=== PATIENT | female | born 1955 | race Caucasian/White ===

== ENCOUNTER 2016-07-02 13:00 | Inpatient (IN) | payer OTHER ==
[2016-07-02] MEDS: IPRATROPIUM/ALBUTEROL SULFATE 3 ML AMPUL.NEB NEB ONE ×2 (13:00→16:53)
[2016-07-02 14:39] LABS: BASOPHILS % 0.2 (0.0-1.5); EOSINOPHILS % 0.4 % (0.0-6.8); MEAN CORPUSCULAR HEMOGLOBIN 30.8 pg (28.0-34.0); MONOCYTES # 0.6 # k/uL (0.0-0.9); MONOCYTES % 6.3 % (0.0-11.0); NEUTROPHILS # 6.3 # k/uL (1.4-7.7)
[2016-07-02 15:05] LABS: eGFR (African) > 60; eGFR (Non-African) > 60
[2016-07-02] MEDS ORDERED: methylPREDNISolone SOD SUCC 125 MG/2 ML VIAL IVP ONE (15:08)
[2016-07-02] MEDS ORDERED: ALBUTEROL SULFATE 2.5 MG/0.5 ML AMPUL.NEB NEB ONE (15:08)
[2016-07-02] MEDS ORDERED: POTASSIUM CHLORIDE 20 MEQ TABLET.ER PO ONE (15:13)
[2016-07-02] MEDS ORDERED: POTASSIUM CHLORIDE 40 MEQ/20ML VIAL IV ONE (15:14)
[2016-07-02] MEDS ORDERED: cefTRIAXone SODIUM 1 GM in 0.9 % SODIUM CHLORIDE 50 ML IV ONE (16:07)
--- NOTE | 2016-07-02 16:32 | Diagnostic Imaging Report ---
[facility] [address] [facility].[address] 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 Clinical history: Short of breath Findings: The heart size is mildly enlarged. There is ectasia and tortuosity of the thoracic aorta. No pleural effusion, pneumothorax or alveolar consolidation. There is mild pulmonary venous congestion. Impression: Mild cardiomegaly with pulmonary venous congestion. 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
--- NOTE | 2016-07-02 16:38 | History and Physical Report ---
History of Present Illnes - History of Present Illness Reason for Visit: SOB History of Present Illness: Patient has had a one week history of increasing SOB and TORRES. Was seen Monday by Dr Blas and started on a Zpak. She continued to have some difficulties and again was seen on Monday and Monday. At that time she she prescribed some steroid medication but did not get them filled. Has been using her Albuterol MDI q 6 hours. Presented to the ED with increasing SOB. Was felt to be having an acute exacerbation of COPD, given HFN of Duoneb and IV solumedrol with some improvement. Needed to be continued on oxygen therapy and was admitted for further treatment. - Past Medical History Cardiac: denies: HTN Pulmonary: COPD. denies: Asthma, Bronchitis, Pulmonary embolus - Past Surgical History Past Surgical History: Cholecystectomy, Hysterectomy, Other (eye surgery, arthroscopin knee surgery, abd wall hernia repair. ) - Past Family History Mother Family History: CAD, (71yo) Brother 1 Family History: DM Father Family History: Cancer (lymphoma), CAD, (68yo) Brother 2 Family History: Cancer (unknown source), Other (Renal failure) Sister 1 Family History: DM Sister 2 Family History: CAD - Past Social History Smoke: 1 pack per day Alcohol: None Drugs: None Lives: With Family Domestic Violence: Negative - Health Maintenance Health Maintenance: Influenza Vaccine. denies: Pneumococcal Vaccine Influenza Vaccine: Current for this Influenza Season Pneumonia Vaccine: No Resuscitation Status: Full code - Unable to Obtain History Unable to Obtain: No Review of Systems - Review of Systems Constitutional: negative: Fever, Chills Eyes: negative: pain, vision change, conjunctivae inflammation ENT: negative: Ear Pain, Ear Discharge, Nose Pain, Nose Discharge, Nose Congestion, Mouth Pain, Mouth Swelling, Throat Pain, Throat Swelling Respiratory: Cough, Shortness of Breath, SOB with Excertion, Sputum (clear to yellow). negative: Hemoptysis, Pleuritic Pain, Wheezing Cardiovascular: Edema. negative: Chest Pain, Palpitations, Orthopnea, Paroxysmal Noc. Dyspnea, Light Headedness Gastrointestinal: negative: Nausea, Vomiting, Abdominal Pain, Diarrhea, Constipation, Hematochezia Genitourinary: negative: Dysuria, Frequency, Incontinence, Hematuria Musculoskeletal: negative: Shoulder Pain Skin: negative: Rash Neurological: negative: Weakness, Numbness, Incoordination - Medications/Allergies Allergies/Adverse Reactions: Allergies Allergy/AdvReac Type Severity Reaction Status Date / Time Tetanus & Diphtheria Allergy Intermediate edema Verified 06/16/14 13:03 Tox,Adult Home Medications: Home Medications Albuterol Sulfate [ProAir RespiClick] 07/02/16 Current Inpatient Medications: Current Inpatient Medications Albuterol/Ipratropium (Duoneb) 3 ml NEB Q4 [facility] Enoxaparin Sodium (Lovenox) 30 mg SQ QD [facility] Stop: 07/15/16 17:01 Hydrochlorothiazide (Hydrodiuril) 25 mg PO DAILY [facility] Ceftriaxone Sodium 1 gm/ (Sodium Chloride) 50 mls @ 100 mls/hr IV NOW ONE Stop: 07/02/16 16:36 Ceftriaxone Sodium 1 gm/ (Sodium Chloride) 50 mls @ 100 mls/hr IV QD [facility] Insulin Human Regular (Humulin R) 0 - 12 unit SQ CHEMX3 [facility] PRN Reason: Protocol Methylprednisolone Sodium Succinate (Solu-Medrol) 80 mg IVP Q12 [facility] Miscellaneous (Chem Sticks) 1 each MC CHEMQID [facility] Naproxen (Naprosyn) 375 mg PO BID [facility] Potassium Chloride (Klor-Con M20) 20 meq PO DAILY [facility] Sodium Chloride (Normal Saline Flush) 3 ml IV BID [facility] Exam - Exam General: Alert, Oriented to Person, Oriented to Place, Oriented to Time, Cooperative HEENT: Atraumatic, PERRLA, Mouth Mucous membr. moist/[place] Neck: Normal Range of Motion. No: Lymphadenopathy Carotids: WNL Thyroid: WNL Lungs: Speaks full Sentences, Respiratory Distress (mild), Wheezes (expiratory) , Rales (few scattered) Cardiovascular: Regular rate, Normal S1, Normal S2, No murmurs. No: Gallops, Rubs Abdomen: Normal bowel sounds, Soft, No tenderness, No hepatospenomegaly, No masses Integumentary: Normal, [place], Warm, Dry Extremities: No clubbing, No cyanosis, No edema Neurological: Normal gait, Normal speech, Strength Equal Bilat, Normal tone Psych/Mental Status: Mental status NL, Mood NL, Appropriate Affect, Intact Judgment - Laboratory Results Laboratory Results: Laboratory Results 07/02/16 07/02/16 15:30 15:35 Influenza Type A Ag Negative Influenza Type B Ag Negative Group A Strep Screen Negative Assessment/Plan - Assessment/Plan (1) COPD with acute exacerbation Status: Acute Current Visit: Yes (2) Hypokalemia Status: Acute Current Visit: Yes (3) Tobacco abuse Status: Acute Current Visit: Yes VTE Assessment - RISK FACTOR SCORE VTE RISK FACTOR SCORES: AGE OVER 60 YEARS, ANTICIPATED BED CONFINEMENT OR IMMOBILIZATION > 24 HOURS - RISK VTE MODERATE RISK: SCORE OF 2 (RISK PROXIMAL DVT 2-4%) PROPHYAXIS NEEDED
[2016-07-02] MEDS ORDERED: POTASSIUM CHLORIDE 20 MEQ TABLET.ER PO SCH (17:14)
[2016-07-02 17:40] VITALS: BMI 97.2
[2016-07-02] MEDS ORDERED: NICOTINE 14mg PATCH.TD24 TD SCH (18:00)
[2016-07-02] MEDS: INSULIN REGULAR, HUMAN 100 UNIT/ML 3ML VIAL SQ SCH (18:10)
[2016-07-02] MEDS: IPRATROPIUM/ALBUTEROL SULFATE 3 ML AMPUL.NEB NEB SCH ×2 (18:11→21:36)
[2016-07-02] MEDS: cefTRIAXone SODIUM 1 GM in 0.9 % SODIUM CHLORIDE 50 ML IV SCH (18:12)
[2016-07-02] MEDS: FUROSEMIDE 20 MG/2 ML VIAL IVP SCH ×2 (18:25→23:50)
[2016-07-02] MEDS: ENOXAPARIN SODIUM 30 MG/0.3 ML DISP.SYRIN SQ SCH (18:32)
[2016-07-02] MEDS ORDERED: SALINE FLUSH 10 ML DISP.SYRIN IVF ONE ×2 (18:37→21:23)
[2016-07-02] MEDS ORDERED: NICOTINE 21mg 1 EACH PATCH.TD24 TD ONE (19:17)
[2016-07-02] MEDS: POTASSIUM CHLORIDE 20 MEQ TABLET.ER PO SCH (19:52)
[2016-07-02] MEDS: LORazepam 0.5 MG TABLET PO PRN (19:53)
[2016-07-02] MEDS: NAPROXEN 250 MG TABLET PO SCH (19:55)
[2016-07-02] MEDS: NICOTINE 21mg 1 EACH PATCH.TD24 TD SCH (19:58)
[2016-07-02] MEDS: SALINE FLUSH 10 ML DISP.SYRIN IV SCH (21:40)
[2016-07-02] MEDS: methylPREDNISolone SOD SUCC 40 MG/ML VIAL IVP SCH (23:23)
--- NOTE | 2016-07-02 23:45 | ED Physician Documentation ---
Dyspnea - HISTORIAN Historian: patient - HPI Stated Complaint: short of breath Chief Complaint: Dyspnea Onset: days ago Initiating Event: upper respiratory illness Severity: severe Associated Symptoms: chills, fever, productive cough Further Comments: yes (60 year old female patient brought in by family due to increased SOB. Patient states she has been sick for the past 2 weeks, states she saw Dr Silva on Monday and completed a zpak and had tessalon perles. States she was seen in the clinic Monday, but did not have time to get her steroid prescription. Patient was prescribed nebulizer treatments but does not have a nebulizer machine at home. C/O worsening SOB and cough with fever and chills. RA Sat 87-88%) - ROS CONST: recent illness EYES/ENT: none GI/: none NEURO/PSYCH: denies: headache MS/SKIN/LYMPH: none - PAST HX Lung Disease: COPD Cardiac Disease: none PE Risk Factors: none Surgeries/Procedures: hysterectomy, other (right knee x 2 arthroscopies) Other History: diabetes Type 2 Allergies/Adverse Reactions: Allergies Allergy/AdvReac Type Severity Reaction Status Date / Time Tetanus & Diphtheria Allergy Intermediate edema Verified 06/16/14 13:03 Tox,Adult Home Medications: Ambulatory Orders Medication Instructions Recorded Hydrochlorothiazide 25 mg PO DAILY 09/10/12 [Hydrochlorothiazide] Benzonatate [Tessalon] 200 mg PO TID PRN #25 capsule 06/16/14 Meloxicam [Mobic] 2.5 mg PO DAILY 06/16/14 Albuterol Sulfate [ProAir 07/02/16 RespiClick] - SOCIAL HX Smoking History: cigarettes (1 ppd since age 11) Alcohol Use: none - FAMILY HX Family History: denies: none - VITAL SIGNS Vital Signs: Vital Signs Temp Pulse Resp BP Pulse Ox 98.8 F 92 H 20 149/72 95 07/02/16 17:43 07/02/16 17:43 07/02/16 17:19 07/02/16 17:43 07/02/16 18:30 - REVIEWED ASSESSMENTS Nursing Assessment Reviewed: Yes Vitals Reviewed: Yes Progress - Progress Progress: Flu shot fall 2015, no history of pneumovac Spoke with Dr Mcgrath, will admit to [facility] for exacerbation of COPD. K 2.5 - no ectopy, K replacement ordered, will continue telemetry ED Results Lab/Radiology - Lab Results Lab Results: Lab Results 07/02/16 07/02/16 07/02/16 15:02 14:40 13:42 WBC RBC Hgb Hct MCV MCH MCHC RDW Plt Count Neut % (Auto) Lymph % (Auto) [place] % (Auto) Eos % (Auto) Baso % (Auto) Neut # Lymph # [place] # Eos # Baso # Reactive Lymphs % Reactive Lymphs # D-Dimer 312 ng/mL ng/mL (6.0-682) Sodium 131 mmol/L L mmol/L (136-145) Potassium 2.5 mmol/L L* mmol/L (3.5-5.0) Chloride 91 mmol/L L mmol/L (98-110) Carbon Dioxide 39 mmol/L H mmol/L (20-32) BUN 16 mg/dL mg/dL (10-26) Creatinine 0.7 mg/dL mg/dL (0.4-1.5) Estimated Creat Clear 182 Est GFR ( Amer) > 60 (60 - ) Est GFR (Non-Af Amer) > 60 (60 - ) Glucose 182 mg/dL H mg/dL (70-99) Calcium 9.9 mg/dL mg/dL (8.5-10.5) Total Bilirubin 0.4 mg/dL mg/dL (0.2-1.2) AST 20 U/L U/L (0-41) ALT 18 U/L U/L (0-45) Alkaline Phosphatase 55 U/L U/L (46-116) NT-Pro-B Natriuret Pep 138.0 pg/mL H pg/mL (15.0-125.0) Total Protein 8.0 g/dL g/dL (6.0-8.5) Albumin 4.5 g/dL g/dL (3.0-5.5) 07/02/16 13:42 WBC 9.30 K/ul K/ul (4.00-12.00) RBC 5.01 M/ul M/ul (3.90-5.20) Hgb 15.4 g/dL g/dL (12.0-16.0) Hct 43.7 % % (34.5-46.5) MCV 87.2 fl fl (80.0-100.0) MCH 30.8 pg pg (28.0-34.0) MCHC 35.3 g/dL g/dL (30.0-36.0) RDW 12.8 % % (11.3-14.3) Plt Count 209 K/mm3 K/mm3 (130-400) Neut % (Auto) 68.3 % % (39.0-79.0) Lymph % (Auto) 22.1 % % (16.0-50.0) [place] % (Auto) 6.3 % % (0.0-11.0) Eos % (Auto) 0.4 % % (0.0-6.8) Baso % (Auto) 0.2 (0.0-1.5) Neut # 6.3 # k/uL # k/uL (1.4-7.7) Lymph # 2.0 # k/uL # k/uL (0.6-4.0) [place] # 0.6 # k/uL # k/uL (0.0-0.9) Eos # 0.0 # k/uL # k/uL (0.0-0.6) Baso # 0.0 # k/uL # k/uL (0.0-0.5) Reactive Lymphs % 2.7 % % (0.0-5.0) Reactive Lymphs # 0.2 # k/uL # k/uL (0.0-0.8) D-Dimer Sodium Potassium Chloride Carbon Dioxide BUN Creatinine Estimated Creat Clear Est GFR ( Amer) Est GFR (Non-Af Amer) Glucose Calcium Total Bilirubin AST ALT Alkaline Phosphatase NT-Pro-B Natriuret Pep Total Protein Albumin - Radiology Radiology Impressions: 2 views the chest. Clinical history: Short of breath Findings: The heart size is mildly enlarged. There is ectasia and tortuosity of the thoracic aorta. No pleural effusion, pneumothorax or alveolar consolidation. There is mild pulmonary venous congestion. Impression: Mild cardiomegaly with pulmonary venous congestion. - Orders Orders: ED Orders Category Date Time Status Continuous Pulse Oximetry Q30M Care 07/02/16 13:[address] Saline Lock/IV NOW Care 07/02/16 13:42 Active Telemetry NOW Care 07/02/16 15:14 Active CHEST 2 VIEW [CHEST P.A.&LAT 2 VIEWS] [RAD] Stat Exams 07/02/16 Completed BNP [NT-proBNP] Stat Lab 07/02/16 15:02 Completed CBC/PLATELET/DIFF Stat Lab 07/02/16 13:42 Completed CMP Stat Lab 07/02/16 13:42 Completed GRP A STREP SCREEN Stat Lab 07/02/16 15:30 Completed INFLUENZA A&B Stat Lab 07/02/16 Uncollected THROAT CULTURE Stat Lab 07/02/16 15:30 Received Albuterol Sulfate Med 07/02/16 15:08 Discontinued 2.5 mg NEB NOW ONE Ipratropium/Albuterol Sulfate [Duoneb] Med 07/02/16 13:42 Discontinued 3 ml NEB NOW ONE Potassium Chloride [Klor-Con 40 Meq/20 ml] Med 07/02/16 15:14 Discontinued 40 meq IV NOW ONE Potassium Chloride [Klor-Con M20] Med 07/02/16 15:13 Discontinued 40 meq PO NOW ONE methylPREDNISolone SOD SUCC [Solu-MEDROL] Med 07/02/16 15:08 Discontinued 125 mg IVP NOW ONE Dyspnea Physical Exam - EXAM General Appearance: moderate distress EENT: eye inspection normal, ENT inspection normal, pharynx normal, no signs of dehydration, PRISCILLA, no nystagmus, TM's nml Respiratory: no resp. distress, no pain on inspiration, speaks full sentences, decreased air movement (bases - bilaterally ), wheezes (BBS, expiratory ) CVS: reg. 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
[2016-07-03] MEDS: IPRATROPIUM/ALBUTEROL SULFATE 3 ML AMPUL.NEB NEB SCH ×6 (03:04→21:29)
[2016-07-03 07:20] LABS: eGFR (African) > 60; eGFR (Non-African) > 60
[2016-07-03] MEDS: INSULIN REGULAR, HUMAN 100 UNIT/ML 3ML VIAL SQ SCH ×3 (08:02→16:45)
[2016-07-03] MEDS ORDERED: POTASSIUM CHLORIDE 20 MEQ TABLET.ER PO SCH (09:00)
[2016-07-03] MEDS: HYDROCHLOROTHIAZIDE 25 MG TABLET PO SCH (09:05)
[2016-07-03] MEDS: POTASSIUM CHLORIDE 20 MEQ TABLET.ER PO SCH ×2 (09:05→20:54)
[2016-07-03] MEDS: NAPROXEN 250 MG TABLET PO SCH ×2 (09:06→20:55)
[2016-07-03] MEDS ORDERED: NICOTINE 21mg 1 EACH PATCH.TD24 TD ONE (09:09)
[2016-07-03] MEDS: NICOTINE 21mg 1 EACH PATCH.TD24 TD SCH (09:10)
[2016-07-03] MEDS: SALINE FLUSH 10 ML DISP.SYRIN IV SCH ×2 (09:10→20:58)
[2016-07-03] MEDS ORDERED: SALINE FLUSH 10 ML DISP.SYRIN IVF ONE ×3 (09:40→20:55)
[2016-07-03] MEDS: methylPREDNISolone SOD SUCC 40 MG/ML VIAL IVP SCH ×2 (09:44→21:56)
[2016-07-03] MEDS: FUROSEMIDE 20 MG/2 ML VIAL IVP SCH ×2 (09:45→21:55)
--- NOTE | 2016-07-03 14:13 | Inpatient Progress Note ---
Subjective - Required Recertification Statement I anticipate X number of days because-include discharge plan: 1 day - Review of Systems Events since last encounter: patient states that she seemed to be doing much better today than yesterday. Patient breathing easier. Oxygen has been decreased from 5 L to 2 L per nasal cannula. Patient does have a productive cough up some green to yellow phlegm. Patient denies any chest pain or chest pressure. Patient states that the nicotine patches do seem to be helping with her craving for tobacco. Pulmonary: Dyspnea, Cough. Denies: Pleuritic Chest Pain Cardiovascular: Denies: Chest Pain Gastrointestinal: Denies: Nausea, Vomiting Genitourinary: Denies: Dysuria Objective - Exam Vitals and I&O: Vital Signs Temp 98.2 F 07/03/16 13:22 Pulse 76 07/03/16 13:22 Resp 22 07/03/16 09:19 BP 147/94 07/03/16 13:22 Pulse Ox 95 07/03/16 13:22 Intake & Output 07/02/16 07/03/16 07/03/16 23:59 11:59 23:59 Intake Total 300 Output Total 600 Balance -300 Weight 257 kg 116.573 kg Intake: Oral 300 Output: Urine 600 Other: Voiding Method Toilet # Bowel Movements 0 General: Alert, Oriented to Person, Oriented to Place, Oriented to Time, Cooperative, No acute distress Lungs: Wheezes (all lung fileds but not as tight as yesterday), Rhonchi (few scattered bilateral). No: Normal air movement ((), Respiratory Distress Cardiovascular: Regular rate, Normal S1, Normal S2, No murmurs. No: Gallops Abdomen: Normal bowel sounds, Soft, No tenderness, No hepatospenomegaly Skin: Normal, [place], Warm, Dry Psych/Mental Status: Mental status NL - Results Results: Laboratory Results WBC 9.30 K/ul (4.00-12.00) 07/02/16 13:42 RBC 5.01 M/ul (3.90-5.20) 07/02/16 13:42 Hgb 15.4 g/dL (12.0-16.0) 07/02/16 13:42 Hct 43.7 % (34.5-46.5) 07/02/16 13:42 MCV 87.2 fl (80.0-100.0) 07/02/16 13:42 MCH 30.8 pg (28.0-34.0) 07/02/16 13:42 MCHC 35.3 g/dL (30.0-36.0) 07/02/16 13:42 RDW 12.8 % (11.3-14.3) 07/02/16 13:42 Plt Count 209 K/mm3 (130-400) 07/02/16 13:42 Neut % (Auto) 68.3 % (39.0-79.0) 07/02/16 13:42 Lymph % (Auto) 22.1 % (16.0-50.0) 07/02/16 13:42 [place] % (Auto) 6.3 % (0.0-11.0) 07/02/16 13:42 Eos % (Auto) 0.4 % (0.0-6.8) 07/02/16 13:42 Baso % (Auto) 0.2 (0.0-1.5) 07/02/16 13:42 Neut # 6.3 # k/uL (1.4-7.7) 07/02/16 13:42 Lymph # 2.0 # k/uL (0.6-4.0) 07/02/16 13:42 [place] # 0.6 # k/uL (0.0-0.9) 07/02/16 13:42 Eos # 0.0 # k/uL (0.0-0.6) 07/02/16 13:42 Baso # 0.0 # k/uL (0.0-0.5) 07/02/16 13:42 Reactive Lymphs % 2.7 % (0.0-5.0) 07/02/16 13:42 Reactive Lymphs # 0.2 # k/uL (0.0-0.8) 07/02/16 13:42 D-Dimer 312 ng/mL (6.0-682) 07/02/16 14:40 Sodium 129 mmol/L (136-145) L 07/03/16 06:15 Potassium 3.0 mmol/L (3.5-5.0) L 07/03/16 06:15 Chloride 96 mmol/L (98-110) L 07/03/16 06:15 Carbon Dioxide 34 mmol/L (20-32) H 07/03/16 06:15 BUN 16 mg/dL (10-26) 07/03/16 06:15 Creatinine 0.7 mg/dL (0.4-1.5) 07/03/16 06:15 Estimated Creat Clear 180 07/03/16 06:15 Est GFR ( Amer) > 60 (60-) 07/03/16 06:15 Est GFR (Non-Af Amer) > 60 (60-) 07/03/16 06:15 Glucose 346 mg/dL (70-99) H 07/03/16 06:15 Calcium 9.5 mg/dL (8.5-10.5) 07/03/16 06:15 Total Bilirubin 0.4 mg/dL (0.2-1.2) 07/02/16 13:42 AST 20 U/L (0-41) 07/02/16 13:42 ALT 18 U/L (0-45) 07/02/16 13:42 Alkaline Phosphatase 55 U/L (46-116) 07/02/16 13:42 NT-Pro-B Natriuret Pep 138.0 pg/mL (15.0-125.0) H 07/02/16 15:02 Total Protein 8.0 g/dL (6.0-8.5) 07/02/16 13:42 Albumin 4.5 g/dL (3.0-5.5) 07/02/16 13:42 Influenza Type A Ag Negative (NEGATIVE) 07/02/16 15:35 Influenza Type B Ag Negative (NEGATIVE) 07/02/16 15:35 Group A Strep Screen Negative (NEGATIVE) 07/02/16 15:30 Assessment/Plan - Assessment/Plan (1) COPD with acute exacerbation Status: Acute Current Visit: Yes Assessment: Improved, will continue with present meds and treatment. (2) Hypokalemia Status: Acute Current Visit: Yes Assessment: Improved with supplement KCl 6, will increase dose (3) Tobacco abuse Status: Acute Current Visit: Yes Assessment: stable (4) Hyperglycemia Status: Acute Current Visit: Yes Assessment: Patient has been told that she is borderline diabetic. Last A1c >7???. Will start sliding scale insulin.
[2016-07-03] MEDS ORDERED: NORMAL SALINE ADD-VANTAGE 50 ML IV ONE (16:59)
[2016-07-03] MEDS ORDERED: cefTRIAXone SODIUM ADVANTAGE 1 GM VIAL.PORT IV ONE (16:59)
[2016-07-03] MEDS: cefTRIAXone SODIUM 1 GM in 0.9 % SODIUM CHLORIDE 50 ML IV SCH (17:18)
[2016-07-03] MEDS: ENOXAPARIN SODIUM 30 MG/0.3 ML DISP.SYRIN SQ SCH (17:34)
[2016-07-03] MEDS: LORazepam 0.5 MG TABLET PO PRN (21:27)
[2016-07-04] MEDS: IPRATROPIUM/ALBUTEROL SULFATE 3 ML AMPUL.NEB NEB SCH ×3 (01:58→09:08)
[2016-07-04] MEDS ORDERED: SALINE FLUSH 10 ML DISP.SYRIN IVF ONE (03:35)
[2016-07-04] MEDS ORDERED: NICOTINE 21mg 1 EACH PATCH.TD24 TD ONE (03:36)
[2016-07-04 07:01] LABS: BASOPHILS % 0.1 (0.0-1.5); EOSINOPHILS % 0.1 % (0.0-6.8); LYMPHOCYTES # 0.9 # k/uL (0.6-4.0); MONOCYTES # 0.4 # k/uL (0.0-0.9); MONOCYTES % 3.9 % (0.0-11.0); NEUTROPHILS # 8.9 # k/uL (1.4-7.7)
[2016-07-04 07:21] LABS: eGFR (African) > 60; eGFR (Non-African) > 60
[2016-07-04] MEDS: INSULIN REGULAR, HUMAN 100 UNIT/ML 3ML VIAL SQ SCH ×2 (07:58→12:11)
[2016-07-04] MEDS: NICOTINE 21mg 1 EACH PATCH.TD24 TD SCH (09:19)
[2016-07-04] MEDS: HYDROCHLOROTHIAZIDE 25 MG TABLET PO SCH (09:19)
[2016-07-04] MEDS: POTASSIUM CHLORIDE 20 MEQ TABLET.ER PO SCH (09:20)
[2016-07-04] MEDS: NAPROXEN 250 MG TABLET PO SCH (09:21)
[2016-07-04] MEDS: SALINE FLUSH 10 ML DISP.SYRIN IV SCH (09:30)
[2016-07-04] MEDS: FUROSEMIDE 20 MG/2 ML VIAL IVP SCH (09:30)
--- NOTE | 2016-07-04 09:30 | Discharge Summary ---
Discharge Summary - Discharge Sumary History of Present Illness: Patient has had a one week history of increasing SOB and TORRES. Was seen Monday by Dr Blas and started on a Zpak. She continued to have some difficulties and again was seen on Monday and Monday. At that time she she prescribed some steroid medication but did not get them filled. Has been using her Albuterol MDI q 6 hours. Presented to the ED with increasing SOB. Was felt to be having an acute exacerbation of COPD, given HFN of Duoneb and IV solumedrol with some improvement. Needed to be continued on oxygen therapy and was admitted for further treatment. Home Medications: Ambulatory Orders Medication Instructions Recorded Hydrochlorothiazide [Hydrodiuril] 25 mg PO DAILY 09/10/12 Benzonatate [Tessalon Perles] 200 mg PO TID PRN #25 capsule 06/16/14 Meloxicam [Mobic] 2.5 mg PO DAILY 06/16/14 Albuterol Sulfate [ProAir 07/02/16 RespiClick] Insulin Regular, Human [Humulin R] 0 unit SQ CHEMX3 #10 ml 07/04/16 LORazepam [Ativan] 0.5 mg PO BID PRN #20 tablet 07/04/16 NICOTINE 21mg [HABITROL 21mg] 1 each TD DAILY patch.td24 07/04/16 Syringe & Needle,Insulin,1 ml 1 each MC TID #100 disp.syrin 07/04/16 [Insulin Syringe] predniSONE [Deltasone] 10 mg PO DAILY #36 tablet 07/04/16 Consultations this Visit: None Procedures this Visit: None Allergies/Adverse Reactions: Allergies Allergy/AdvReac Type Severity Reaction Status Date / Time Tetanus & Diphtheria Allergy Intermediate edema Verified 06/16/14 13:03 Tox,Adult Discharge Summary: patient was started on supplemental oxygen in order to maintain her SaO2 greater than 90%. Patient was started on Rocephin 1 g IV every 24 hours for antibiotic therapy. Patient has finished a course of azithromycin prior to her being admitted to the hospital. Patient was given some IV Solu-Medrol to help with the bronchial spasms that she is having. Patient did have an exacerbation of his shoulders associated with the steroid therapy. This was treated with IV insulin. Patient was felt to possibly be having some pulmonary congestion also and was given IV Lasix initially. Patient breathing status did improve. Patient had to be maintained on oxygen in order to keep her SaO2 greater than 90 % and was discharged home on oxygen therapy. Patient did have a d-dimer which was within normal range. - Final Diagnosis (1) COPD with acute exacerbation Problems: improved with therapy. (2) Hypokalemia Problems: resolved (4) Hyperglycemia Problems: felt to be related to steroid therapy
[2016-07-04] MEDS: methylPREDNISolone SOD SUCC 40 MG/ML VIAL IVP SCH (09:31)
[2016-07-04 15:04] VITALS: BP 126/69
[2016-07-04] MEDS ORDERED: INSULIN REGULAR, HUMAN 100 UNIT/ML 3ML VIAL SQ ONE (20:56)
[2016-07-04] MEDS ORDERED: SALINE FLUSH 10 ML DISP.SYRIN IVF SCH (21:00)
== END 2016-07-04 13:20 | disposition home or self-care (01) | DRG 192 ==
LOC: ED 13:00 → SOUTH 15:24 → UNDOADMIN 15:24
PROVIDERS: ADMIT Family Medicine; ATTEND Family Medicine
DX: J44.1 Chronic obstructive pulmonary disease with (acute) exacerbation (principal); E87.6 Hypokalemia; R73.9 Hyperglycemia, unspecified
CPT/HCPCS: 36415; 71020; 80048; 80053; 83880; 85025; 85379; 87070; 87400; 87880; 94640; 94760; A9270; J0696; J1650; J1815; J1940; J2920; J2930; 99222; 99232; 99238; 99284; J1030; S1016

== ENCOUNTER 2018-05-13 18:29 | Emergency (ER) | payer OTHER ==
[2018-05-13] MEDS: 0.9 % SODIUM CHLORIDE 1,000 ML IV ONE ×2 (18:45→18:46)
[2018-05-13] MEDS: ONDANSETRON HCL/PF 4 MG/ 2ML VIAL ONE (18:46)
[2018-05-13] MEDS: ONDANSETRON HCL/PF 4 MG/ 2ML VIAL IVP ONE (18:47)
[2018-05-13] MEDS: KETOROLAC TROMETHAMINE 30 MG/1ML VIAL IVP ONE (18:52)
--- NOTE | 2018-05-13 18:53 | ED Physician Documentation ---
General Adult - HISTORIAN Historian: patient - HPI Stated Complaint: vomiting, diarrhea Chief Complaint: General Adult Additional Information: Vomiting and diarrhea for 24 hours. No pain other than cramping just before emesis. HX COPD. Stopped home oxygen in August; pulse ox 86% in ER. Placed on 2L per [place]. Open heart surgery in June for "aneurysm in heart." Temp 101.1 in ER. FSG 122. - ROS CONST: fever - PAST HX Past History: COPD, hypertension Surgeries/Procedures: cholecystectomy, other (knee scope; above) - SOCIAL HX Smoking History: cigarettes - FAMILY HX Family History: No - VITAL SIGNS Vital Signs: Vital Signs Temp Pulse Resp BP Pulse Ox 126/69 07/04/16 10:00 - REVIEWED ASSESSMENTS Nursing Assessment Reviewed: Yes Vitals Reviewed: Yes <MARY LOU POWELL - Last Filed: 05/13/18 18:50> - HPI Further Comments: yes (She reports diarrhea started about 24 hours ago. She did not know that she was running a fever although she had chills. She was on Augmentin for 10 days and she was just off the med last night . She denies any increased shortness of air however her oxygen level was 87-88% on arrival with room air. She has a pulse ox at home but she has not felt the need to use this due to no symptoms) - VITAL SIGNS Vital Signs: Vital Signs Temp Pulse Resp BP Pulse Ox 101.1 F H 122 H 24 112/54 84 L 05/13/18 18:32 05/13/18 18:32 05/13/18 18:32 05/13/18 18:32 05/13/18 18:32 <Jayne Vallejo - Last Filed: 05/13/18 20:54> - PAST HX Allergies/Adverse Reactions: Allergies Allergy/AdvReac Type Severity Reaction Status Date / Time Tetanus & Diphtheria Allergy Intermediate edema Verified 05/13/18 19:07 Tox,Adult Home Medications: Ambulatory Orders Medication Instructions Recorded Hydrochlorothiazide [Hydrodiuril] 25 mg PO DAILY 09/10/12 Albuterol Sulfate [ProAir 1 inh INH DIRECTED 07/02/16 RespiClick] Albuterol Sulfate [Proair Hfa] 1 puff INH DIRECTED 05/13/18 Aspirin EC [Ecotrin] 81 mg PO D 12/16/18 Furosemide [Lasix] 40 mg PO BID 05/13/18 Metoprolol Tartrate [Lopressor] 12.5 mg PO BID 05/13/18 Naproxen [Naprosyn] 500 mg PO BID 05/13/18 Progress - Progress Progress: 1899, care to Cely Vallejo. <MARY LOU POWELL - Last Filed: 05/13/18 18:50> - Progress Progress: 2015: Discussed results and she is refusing to stay and obtain treatment DG <VallejoCely - Last Filed: 05/13/18 20:54> ED Results Lab/Radiology - Orders Orders: ED Orders Category Date Time Status Place IV Lock 1T Care 05/13/18 18:39 Ordered CBC/PLATELET/DIFF Routine Lab 05/13/18 Ordered CMP Routine Lab 05/13/18 Ordered URINALYSIS Routine Lab 05/13/18 Ordered 0.9 % Sodium Chloride [Normal Saline] 1,000 ml Med 05/13/18 18:40 Discontinued IV .STK-MED Chem Sticks Med 05/13/18 18:40 Ordered 1 each CHEMQID PRN Ketorolac Tromethamine [Toradol] Med 05/13/18 18:42 Once 30 mg IVP NOW ONE NORMAL SALINE @ 1000 MLS/HR ( 1000ml BOLUS) Med 05/13/18 18:39 Ordered 0.9 % Sodium Chloride [Normal Saline] 1,000 ml IV Q1H Ondansetron HCl/Pf [Zofran 4 mg/2 ml] Med 05/13/18 18:40 Discontinued 4 mg .ROUTE .STK-MED ONE Ondansetron HCl/Pf [Zofran 4 mg/2 ml] Med 05/13/18 18:39 Once 4 mg IVP NOW ONE Oxygen Daily Oxygen 05/13/18 18:45 Ordered <MARY LOU POWELL - Last Filed: 05/13/18 18:50> - Radiology Radiology Impressions: AP chest CLINICAL HISTORY: Fever. COPD. Nausea and vomiting. FINDINGS: Examination of the chest in single AP view demonstrates postoperative changes with multiple sternotomy wires. Cardiac silhouette is enlarged and aorta is atherosclerotic. Lungs are hypoventilated but clear. IMPRESSION: Hypoventilation. Postoperative chest. Cardiomegaly and aortic atherosclerosis. Electronically signed on May 13, 2018 7:29:14 PM TRANSMISSION AND COORDINATION ENGINEER by: Davy Bruce - Orders Orders: ED Orders Category Date Time Status Place IV Lock 1T Care 05/13/18 18:39 Active CHEST 1VIEW [RAD] Stat Exams 05/13/18 Ordered CBC/PLATELET/DIFF Stat Lab 05/13/18 18:45 Received CMP Stat Lab 05/13/18 18:45 Received URINALYSIS Routine Lab 05/13/18 Ordered 0.9 % Sodium Chloride [Normal Saline] 1,000 ml Med 05/13/18 18:40 Discontinued IV .STK-MED 0.9 % Sodium Chloride [Normal Saline] 1,000 ml Med 05/13/18 18:39 Active IV Q1H Chem Sticks Med 05/13/18 18:40 Ordered 1 each MC CHEMQID PRN Ketorolac Tromethamine [Toradol] Med 05/13/18 18:42 Discontinued 30 mg IVP NOW ONE Ondansetron HCl/Pf [Zofran 4 mg/2 ml] Med 05/13/18 18:40 Discontinued 4 mg .ROUTE .STK-MED ONE Ondansetron HCl/Pf [Zofran 4 mg/2 ml] Med 05/13/18 18:39 Discontinued 4 mg IVP NOW ONE Oxygen Daily Oxygen 05/13/18 18:45 Ordered <Jayne Vallejo - Last Filed: 05/13/18 20:54> General Adult Physical Exam - PHYSICAL EXAM GENERAL APPEARANCE: mild distress EENT: eye inspection normal, ENT inspection normal (except dry oropharynx) NECK: normal inspection, supple RESPIRATORY: no resp distress, breath sounds normal (profoundly decreased) CVS: reg rate & rhythm, heart sounds normal ABDOMEN: soft, normal bowel sounds BACK: normal inspection, no CVA tenderness, other (no vertebral tenderness) SKIN: warm/dry, other (ashen) EXTREMITIES: no evidence of injury, edema (non-pitting, ankles) NEURO: CN's nml as tested, motor nml, sensation nml, cognition normal <MARY LOU POWELL - Last Filed: 05/13/18 18:50> - PHYSICAL EXAM GENERAL APPEARANCE: no distress EENT: eye inspection normal, dry mucous membranes NECK: normal inspection RESPIRATORY: breath sounds normal (profoundly decreased bilteral bases with decrease ) CVS: reg rate & rhythm, heart sounds normal ABDOMEN: soft, normal bowel sounds EXTREMITIES: no evidence of injury NEURO: CN's nml as tested <Jayne Vallejo - Last Filed: 05/13/18 20:54> Discharge <MARY LOU POWELL - Last Filed: 05/13/18 18:50> Comments: 1. She is refusing to stay in the hospital due to hypoxia Decision to Admit: NO Date of Decison to Admit: 05/13/18 Decision Time: 20:18 <Jayne Vallejo - Last Filed: 05/13/18 20:54> Clincal Impression: COPD with acute exacerbation Diarrhea Qualifiers: Diarrhea type: unspecified type Qualified Code(s): R19.7 - Diarrhea, unspecified Referrals: Primary Doctor,No [Primary Care Provider] - 2 Days Condition: Fair Disposition: 07 AGAINST MEDICAL ADVICE
[2018-05-13 21:31] VITALS: BP 134/67
--- NOTE | 2018-05-14 06:00 | Diagnostic Imaging Report ---
JANEEN BLANCA [facility] [id number] [facility] [address], [place]. [address] Report Submission Date: May 13, 2018 7:29:14 PM BOARD WINDER Patient Study Name: CARLOS BALLESTEROS Date: May 13, 2018 7:08:29 PM BOARD WINDER Modality Type: DX Gender: F Description: CHEST : 51 Institution: [facility] Physician: JANEEN BLANCA AP chest CLINICAL HISTORY: Fever. COPD. Nausea and vomiting. FINDINGS: Examination of the chest in single AP view demonstrates postoperative changes with multiple sternotomy wires. Cardiac silhouette is enlarged and aorta is atherosclerotic. Lungs are hypoventilated but clear. IMPRESSION: Hypoventilation. Postoperative chest. Cardiomegaly and aortic atherosclerosis. Electronically signed on May 13, 2018 7:29:14 PM BOARD WINDER by: Davy BARR
[2018-05-14 07:14] LABS: eGFR (Non-African) > 60
[2018-05-14 07:15] LABS: BASOPHILS % 0.3 (0.0-1.5); MEAN CORPUSCULAR HEMOGLOBIN 28.3 pg (28.0-34.0); MONOCYTES % 6.5 % (0.0-11.0); NEUTROPHILS # 8.4 # k/uL (1.4-7.7)
== END 2018-05-13 20:17 | disposition left against medical advice (07) ==
LOC: ED 18:29
DX: J44.1 Chronic obstructive pulmonary disease with (acute) exacerbation (principal); R19.7 Diarrhea, unspecified
CPT/HCPCS: 36415; 71045; 80053; 83880; 85025; 96374; 96375; 99283; 99284; J1885; J2405; J7030; S1016